=== PATIENT | female | born 1975 | race Caucasian/White ===

== ENCOUNTER 2016-10-16 09:55 | Emergency (ER) | payer MEDICAID ==
[~2016-10-16] VITALS: Ht 162.6 cm; Wt 49.9 kg
--- NOTE | 2016-10-16 09:55 | NUR ---
Patient AYANA ALVAREZ, triaged by RN and transferred to ED lobby via wheelchair by tech to wait for an available bed.
[2016-10-16 09:56] VITALS: BP 156/90
--- NOTE | 2016-10-16 11:04 | NUR ---
Dorie multani in [facility] - 10/16/16 at 1106 by MMTHEM Patient ambulated to bed 3 for further care. RN evaluating patient at bedside.
--- NOTE | 2016-10-16 11:04 | NUR ---
Patient ambulated to bed 4 for further care. RN evaluating patient at bedside.
--- NOTE | 2016-10-16 11:07 | NUR ---
PT BIBA FOR EVALUATION OF SOB. BRANCH CUSTOMER SERVICE REPRESENTATIVE STATES PT WAS BEING DETAINED BY POLICE AND BECAME SOB. DENIES N/V/D; SKIN IS PINK/WARM/DRY; AAOX4 WITH EVEN AND STEADY GAIT; LUNGS CLEAR BL; HR EVEN AND REGULAR; PT DENIES ANY FEVER, CP, OR COUGH AT THIS TIME; PATIENT STATES PAIN OF 0/10 AT THIS TIME; VSS; PATIENT POSITIONED FOR COMFORT; HOB ELEVATED; BEDRAILS UP X2; BED DOWN. ER MD MADE AWARE OF PT STATUS.
--- NOTE | 2016-10-16 11:41 | NUR ---
Dr. Obrien evaluating patient at bedside.
--- NOTE | 2016-10-16 13:01 | NUR ---
PT RESTING COMFORTABLY, NO ACUTE DISTRESS NOTED AT THIS TIME, WILL CONTINUE TO MONITOR
--- NOTE | 2016-10-16 14:55 | NUR ---
AAO PT ABLE TO CONSUMED 100% OF LUNCH PROVIDED, WILL CONTINUE TO MONITOR
--- NOTE | 2016-10-16 15:50 | NUR ---
PT RESTING COMFORTABLY SLEEPING ON BED, NO C/O SOB NOTED AT THIS TIME, VSS, WILL CONTINUE TO MONITOR
--- NOTE | 2016-10-16 16:53 | NUR ---
zoltan goodwin spoke to dorothea from hospital social worker for referral of patient. dorothea will call back for more information
--- NOTE | 2016-10-16 17:19 | NUR ---
MIKE,TRACTOR DRIVER TEAMSTER CALLED AND CAN NOT SEE PATIENT. [employer] NURSING RUBBER TUBING BACKER OFFERED BUS PASS/HOMELESS PACKET. PRIMARY NURSE GEORGE MADE AWARE.
[2016-10-16 17:44] VITALS: BP 138/84
--- NOTE | 2016-10-16 17:44 | NUR ---
Patient discharged with v/s stable. Written and verbal after care instructions given and explained. Patient verbalized understanding. Ambulatory with steady gait. All questions addressed prior to discharge. Advised to follow up with PMD. BUS PASS, HOMELESS PACKET PROVIDED WITH SNACKS VERBALIZED UNDERSTANDING, AMBULATE TO [facility]
== END 2016-10-16 17:44 | disposition home or self-care (01) ==
LOC: MED 09:55
DX: F99 Mental disorder, not otherwise specified (principal); Z59.0 Homelessness
CPT/HCPCS: 36415; 71010; 80053; 82948; 85025; 99285; Q0092

== ENCOUNTER 2021-06-07 14:25 | Emergency (ER) | payer MEDICAID, OTHER ==
[~2021-06-07] VITALS: Ht 160 cm; Wt 49.9 kg
[2021-06-07 14:36] VITALS: BP 154/60
[2021-06-07] MEDS ORDERED: HALOPERIDOL IM 5 MG/ML VIAL ONE (15:17)
[2021-06-07] MEDS ORDERED: MIDAZOLAM 2 MG/2 ML VIAL ONE (15:17)
[2021-06-07] MEDS ORDERED: MIDAZOLAM 5 MG/5 ML VIAL IV ONE (15:20)
[2021-06-07] MEDS ORDERED: NACL 0.9% 1,000 ML IV ONE (15:20)
[2021-06-07] MEDS ORDERED: HALOPERIDOL IM 5 MG/ML VIAL IVP ONE (15:20)
--- NOTE | 2021-06-07 15:20 | NUR ---
PT BIBA TAKEN TO ER BED 2.
--- NOTE | 2021-06-07 15:25 | NUR ---
46 y/o female biba from [facility], by stander called on behalf, pt was found aloc in front of dulce, amr reports gcs 14 a&ox2, incontinent, hallucinations, on restraints for aggresive behavior. pt is making incomprehensible sounds at this time. bed locked in lowest position, side rails x 2 for pt safety. pmh: drug use nka
--- NOTE | 2021-06-07 15:26 | NUR ---
Patient asleep after medication administration; EMS restraints removed at this time.
--- NOTE | 2021-06-07 15:45 | NUR ---
PATIENT TO CT BY MERRY ACCOMPANIED BY HOUSESMITH
--- NOTE | 2021-06-07 15:55 | NUR ---
Pt returned from CT by vitaliy, placed back onto hall monitor. Pt tolerated procedure well. Bed locked in lowest position, side rails x 2.
[2021-06-07 16:37] LABS: BASOPHILS % (AUTO) 0.5 % (0.0-2.0); EOSINOPHILS % (AUTO) 0.5 % (0.0-4.0); HEMATOCRIT 48.3 % (36-48); HEMOGLOBIN 16.7 g/dL (12.0-16.0); LYMPHOCYTES # (AUTO) 2.2 K/uL (2.5-16.5); MEAN CORPUSCULAR HEMOGLOBIN 35 pg (27-31); MEAN CORPUSCULAR HGB CONC 35 g/dL (33-37); MEAN CORPUSCULAR VOLUME 100.8 fL (80-94); MONOCYTES # (AUTO) 0.2 K/uL (0.8-1.0); MONOCYTES % (AUTO) 3.6 % (1.7-9.3); NEUTROPHILS # (AUTO) 3.9 K/uL (1.8-7.7); NEUTROPHILS % (AUTO) 61.4 % (42.2-75.2); PLATELET COUNT (AUTO) 277 K/uL (140-450); RED BLOOD CELL COUNT(AUTO) 4.79 MIL/uL (4.20-5.40); RED CELL DISTRIBUTION WIDTH 15.7 % (11.6-13.7); WHITE BLOOD COUNT (AUTO) 6.4 K/uL (4.8-10.8)
--- NOTE | 2021-06-07 17:30 | NUR ---
Patient awake requesting food and IV removal. Advised IVF continued at this time.
--- NOTE | 2021-06-07 19:30 | NUR ---
Report and transfer of care endorsed to LUCRECIA Swanson.
--- NOTE | 2021-06-07 22:06 | NUR ---
Patient appears to be resting comfortably in bed. Vital Signs within normal limits. Respirations even and unlabored.
--- NOTE | 2021-06-08 | NUR ---
Patient appears to be resting comfortably in bed. Vital Signs within normal limits. Respirations even and unlabored.
[2021-06-08 00:04] LABS: ALBUMIN 3.1 g/dL (3.4-5.0); ANION GAP 18.8 (8-16); ASPARTATE AMINOTRANSFERASE 49 U/L (15-37); CARBON DIOXIDE 27.2 mmol/L (21-32); CHLORIDE 104 mmol/L (98-107); CREATININE 0.5 mg/dL (0.6-1.3); GFR ARICAN-AMERICAN 170 mL/min (>90); GLUCOSE 61 mg/dL (74-106); SODIUM SERUM 147 mmol/L (136-145); TOTAL BILIRUBIN 0.6 mg/dL (0.0-1.0); UREA NITROGEN, BLOOD 5 mg/dL (7-18)
[2021-06-08 00:07] LABS: SALICYLATE < 2.8 mg/dL (2.8-20.0)
--- NOTE | 2021-06-08 02:05 | NUR ---
Patient discharged with v/s stable. Written and verbal after care instructions given and explained. Patient verbalized understanding. Ambulatory with steady gait. All questions addressed prior to discharge. Advised to follow up with PMD.
[2021-06-08 02:13] VITALS: BP 177/116
[2021-06-08 06:36] LABS: ACETAMINOPHEN < 0.5 ug/ml (10-30)
== END 2021-06-08 02:05 | disposition home or self-care (01) ==
LOC: MED 14:25
DX: F10.129 Alcohol abuse with intoxication, unspecified (principal); Y90.8 Blood alcohol level of 240 mg/100 ml or more
CPT/HCPCS: 36415; 70450; 71045; 80053; 82550; 82553; 84484; 85025; 93005; 96361; 96374; 96375; 99285; G0480; G0482; J1630; J2250; J7030